=== PATIENT | female | born 1955 | race Caucasian/White ===

== ENCOUNTER 2017-05-02 12:25 | Inpatient (IN) ==
[2017-05-02] MEDS ORDERED: NORCO-7.5 PO PRN (14:26)
--- NOTE | 2017-05-02 14:59 | Diag Imaging Result Doc PS360 ---
EXAM: CT HEAD W/O CONTRAST HISTORY: numbness TECHNIQUE: CT of the head without contrast with dose reduction (clarity.) COMMENT: There are calcifications in the right vertebral artery. There is no evidence of mass effect, bleed, abnormal extra-axial fluid collection, hydrocephalus or acute bony abnormality. The visualized paranasal sinuses are clear. IMPRESSION: No evidence of acute intracranial disease. No significant change since 01/06/2012. Electronically signed by Kvng Bellamy 05/02/2017 2:57 PM
--- NOTE | 2017-05-02 15:03 | Diag Imaging Result Doc PS360 ---
EXAM: CHEST-PORTABLE HISTORY: numbness TECHNIQUE: AP portable upright at [id number] COMMENT: The lungs are clear and the heart and pulmonary vascularity are within normal limits. Compared to 07/26/2013 there has been no significant change in the appearance of the chest. IMPRESSION: No acute disease. Electronically signed by Kvng Bellamy 05/02/2017 3:01 PM
[2017-05-02] MEDS: NORVASC PO SCH (15:12)
[2017-05-02] MEDS: D5 1/2 NS 1,000 ML IV SCH (15:12)
[2017-05-02] MEDS: LOPRESSOR PO SCH ×2 (15:12→22:42)
[2017-05-02 17:01] LABS: BASO% 0.5 % (0.0-0.8); EOS# 0.04 X1000 (0.0-0.7); EOS% 0.7 % (0.0-10.0); HEMATOCRIT 45.5 % (37.0-47.0); HEMOGLOBIN 14.8 g/dL (12.0-16.0); LYMPH# 1.17 X1000 (1.2-3.4); LYMPH% 19.7 % (20.5-51.1); MANUAL DIFF NEEDED? NO; MCHC 32.5 g/dL (33-37); MCV 92.3 FL (81-99); MONO# 0.32 X1000 (0.11-0.59); MONO% 5.4 % (1.7-9.3); MPV 11.4 FL (7.4-10.4); NEUT% 73.7 % (42.2-75.2); PLT 194 X1000 (130-400); RBC 4.93 XMIL (4.2-5.4)
[2017-05-02 17:16] LABS: ALBUMIN 4.1 g/dL (3.5-5.0); POTASSIUM 4.5 mmol/L (3.5-5.1); TOTAL BILIRUBIN 0.32 mg/dL (0.20-1.00); TOTAL PROTEIN 6.9 g/dL (6.3-8.3)
[2017-05-03] MEDS: D5 1/2 NS 1,000 ML IV SCH ×2 (03:31→18:55)
[2017-05-03] MEDS: LOPRESSOR PO SCH ×2 (09:33→21:06)
[2017-05-03] MEDS: LEXAPRO PO SCH (09:34)
[2017-05-03] MEDS: NORVASC PO SCH (09:35)
[2017-05-04] MEDS: D5 1/2 NS 1,000 ML IV SCH ×3 (05:11→08:38)
[2017-05-04 08:20] VITALS: BP 132/58
[2017-05-04] MEDS: NORVASC PO SCH (09:39)
[2017-05-04] MEDS: LEXAPRO PO SCH (09:39)
[2017-05-04] MEDS: LOPRESSOR PO SCH (09:39)
== END 2017-05-04 10:23 | disposition home or self-care (01) ==
LOC: DIRADM 12:25 → 3N 12:42
PROVIDERS: ADMIT Internal Medicine; ATTEND Internal Medicine